=== PATIENT | male | born 2000 | race Caucasian/White ===

== ENCOUNTER 2020-05-03 19:41 | Emergency (ER) | payer OTHER, SELFPAY ==
[2020-05-03 19:58] VITALS: BP 151/72; PULSE 77; RESP 14; TEMP 36.8; O2SAT 100; BMI 23.2
--- NOTE | 2020-05-03 20:19 | ED_ITS ---
HPI - Extremity Problem General: Chief complaint: Extremity Injury, Upper Stated complaint: finger swollen and throbing pain Time Seen by Provider: 05/03/20 19:56 Source: patient Mode of arrival: ambulatory Limitations: no limitations History of Present Illness: HPI Narrative: Patient is a 20-year-old male who presents to ED today with a complaint of pain to his right middle finger. Patient states he smashed the finger approximately 2 to 3 days ago. He states he woke up this morning with pain about the tip of the finger. He states no lacerations, abrasions, breaks in the skin were ever sustained. Tetanus is up-to-date. He states the finger is swollen. MD Complaint: extremity pain and extremity swelling Onset (ago): day(s) Pain Consistency: constant Location: right and upper extremity Radiation: none Relieving factors: nothing Exacerbating factors: nothing Associated symptoms: Reports no associated symptoms Review of Systems Musc: Reports: extremity pain (R middle finger) and extremity swelling (R middle finger) Neuro: Denies: numbness in extremities or sensory changes Physical Exam Const: COMMON NORMALS: no acute distress, average body habitus, patient oriented x3, no limitations, healthy appearing, alert and well nourished Extremity: GENERAL: Yes normal exam except as noted OTHER: pt has mild swelling throughout R middle finger; there is no redness/warmth to entire digit or over a joint; no tenderness of flexion or extension tendons; full ROM; he has mild redness and all of tenderness is located to ulnar aspect of R middle nail consistent with a paronychia Neuro: COMMON NORMALS: patient oriented x3, moves all extremities, no focal motor deficits and no sensory deficits noted SENSORIUM/ORIENTATION: Yes alert Course Vital Signs: Vital signs: Vital Signs Temperature 98.3 F 05/03/20 19:58 Pulse Rate 77 05/03/20 19:58 Respiratory Rate 14 05/03/20 19:58 Blood Pressure 151/72 05/03/20 19:58 Pulse Oximetry 100 05/03/20 19:58 MDM - Extremity (Nontraumatic) MDM Narrative: Medical decision making narrative: clinically pt has a paronychia; he has some mild swelling to the digit that I think is probably from him smashing it the other day; he has no deep space finger infection or tenosynovitis; will place on abx and have him do warm water soaks; return to ED precautions given Discharge Plan Discharge Patient Disposition: Home Clinical Impression: Acute paronychia of finger of right hand Condition: Stable Prescriptions: New Bactrim DS 800-160 mg tablet 1 tab PO BID 7 Days Qty: 14 RF: 0 Discharge Orders: Discharge Order (Routine); Ordered 05/03/20 Ordered By: Mar Medellin Patient Instructions: Paronychia (ED) Activity Restrictions/Additional Instructions: As discussed please do warm soapy water soaks for 20 minutes 3-4 times daily. Y ou may follow-up with primary care in 3 to 5 days if symptoms are worsening. Coding Level of Care Code ED Product Safety Administrator for Amber Fwd Exam Expanded Problem Focused
[2020-05-03 21:13] VITALS: BP 118/70; PULSE 78; RESP 18; O2SAT 99
== END 2020-05-03 21:20 | disposition home or self-care (01) ==
PROVIDERS: Emergency Provider Physician Assistant
DX: L03.011 Cellulitis of right finger (principal)
CPT/HCPCS: 12345; 99281

== ENCOUNTER → 2020-05-27 15:46 | Outpatient (BNVA) | payer OTHER, SELFPAY | PROVIDERS: Visit Provider Nurse Practitioner Family | DX: Z11.59 Encounter for screening for other viral diseases (principal); Z20.828 Contact with and (suspected) exposure to other viral communicable diseases; J06.9 Acute upper respiratory infection, unspecified | CPT/HCPCS: 87635 ==

== ENCOUNTER 2025-02-14 19:39 | Emergency (ER) | payer MEDICAID, SELFPAY ==
[2025-02-14 19:54] VITALS: BP 164/105; PULSE 60; RESP 16; TEMP 36.6; O2SAT 100; BMI 33.6
[2025-02-14 21:14] VITALS: BP 166/107
--- NOTE | 2025-02-15 06:16 | ED_ITS ---
HPI - General Adult General: Chief complaint: General Medical Stated complaint: swollen knot on Left side neck into chin Time Seen by Provider: 02/14/25 20:39 History of Present Illness: Patient presents with swelling on one side of the neck, which has occurred once before on the same side. The swelling was previously larger, past the jawline, but has since decreased. Patient reports feeling hot but denies significant airway compromise, trouble swallowing, or breathing difficulties. There is a sensation of something pushing when swallowing. No cough or fever reported. The patient notes mild congestion but states this is not a new symptom. No history of terrible breath or food getting stuck during previous episodes. The episode may have been triggered while eating a [employer] special, but there is no clear evidence of a food allergy. The patient expresses concern about possible causes, including lymph node involvement or a structural abnormality such as a branchial cleft or diverticulum. Related Data Previous Rx's ?Medication ?Instructions ?Recorded ondansetron HCl 4 mg tablet 4 mg PO Q6H PRN nausea and 06/11/20 (Zofran) vomiting #20 tabs amoxicillin 875 mg-potassium 1 tab PO BID 10 days #20 tabs 06/24/20 clavulanate 125 mg tablet (Augmentin) Allergies Allergy/AdvReac Type Severity Reaction Status Date / Time azithromycin Allergy ALGY-Rash Verified 02/14/25 19:55 PFS ED PFSH: Family History Denies family history of Diabetes Clotting disorder Psychiatric illness Bleeding disorder Stroke Social History (Updated 07/30/20 @ 16:33 by Estuardo Tee LPN) Smoking and tobacco/nicotine status: current every day tobacco/nicotine user cigarettes Packs smoked per day: 1 Years cigarettes smoked: 4 Second hand smoke exposure: No Alcohol intake: never Substance/Drug Use: never Lives independently: Yes Household members: significant other Marital status: Single Current occupational status: employed Current occupation: [employer] Current gender identity: Male Physical Exam Const: COMMON NORMALS: no acute distress, patient oriented x3 and alert HENMT: COMMON NORMALS: normocephalic and atraumatic HEAD & SCALP: normocephalic and atraumatic Eye: COMMON NORMALS: Equal, round and reactive pupils present, EOMs intact bilaterally and no scleral icterus PUPIL: Yes Equal, round and reactive pu pils present Neck/C-Spine: OTHER: Mild pain with palpation of the left parotid gland just below the mandible angle. There is very mild swelling when compared with the contralateral side. No obvious lymphadenopathy or other abnormality. Resp: COMMON NORMALS: normal respiratory effort and No retractions Cardio: COMMON NORMALS: regular rate, regular rhythm and No murmurs present (Cardio) RATE: regular rate RHYTHM: regular rhythm GI: COMMON NORMALS: Normal to inspection, nondistended, normoactive bowel sounds present, Soft to palpation and non-tender PALPATION: Yes Soft to palpation Neuro: COMMON NORMALS: patient oriented x3 SENSORIUM/ORIENTATION: Yes alert Skin: COMMON NORMALS: no rashes or lesions noted GENERAL SKIN EXAM: no rashes or lesions noted Course Vital Signs: Vital signs: Vital Signs Temperature 97.8 F 02/14/25 19:54 Pulse Rate 60 02/14/25 19:54 Respiratory Rate 16 02/14/25 19:54 Blood Pressure 166/107 02/14/25 21:14 Pulse Oximetry 100 02/14/25 19:54 Oxygen Delivery Me thod Room Air 02/14/25 19:54 MDM - General Adult Medical Decision Making Patient is a generally well-appearing 24-year-old male seen for left anterior neck swelling and pain. He thinks this is a lymph node but I am uncertain whether that is the case. He has only very mild pain and very mild swelling at the time of my exam though he states it was worse earlier. Differential includes but is not limited to parotid gland dysfunction, lymph node, Zenker diverticulum, branchial cleft cyst. He was offered CT scan of the neck to further evaluate but he graciously declines and will follow-up with primary care knowing that he is always welcome back in the emergency department if symptoms get worse before outpatient follow-up. No radiology studies performed this visit Discharge Plan Discharge Patient Disposition: Home Clinical Impression: Localized swelling, mass and lump, neck Condition: Stable Prescriptions: No Action amoxicillin-pot clavulanate [Augmentin] 875-125 mg tablet 1 tab PO BID 10 Days Qty: 20 0RF ondansetron HCl [Zofran] 4 mg tablet 4 mg PO Q6H PRN (Reason: nausea and vomiting) Qty: 20 0RF Discharge Orders: Discharge ED (Routine); Ordered 02/14/25 Ordered By: Juan F Lindquist Discharge Diet: Advance as tolerated Discharge Activity: Increase activity as tolerated Patient Instructions: Patient Portal & Sam Instructions Activity Restrictions/Additional Instructions: as we discussed, without a CT scan it is hard to be 100% certain of the etiology of the swelling and pain in the left side of your neck. You may have a branchial cleft cyst or may be just the lymph node is swollen. Either way, it seems to be getting better at this time. If symptoms get worse or if you have a fever or redness or vomiting or trouble swallowing or breathing please return to the emergency department to consider scanning the neck. Print Language: Citizen Of [place] Coding Level of Care Code ED Sales Host for Amber Altman
== END 2025-02-14 21:35 | disposition home or self-care (01) ==
PROVIDERS: Emergency Provider Student in an Organized Health Care Education/Training Program
DX: R22.1 Localized swelling, mass and lump, neck (principal)
CPT/HCPCS: 99281

== ENCOUNTER 2025-02-15 11:46 | Emergency (ER) | payer MEDICAID, SELFPAY ==
[2025-02-15 11:55] VITALS: BP 175/84; PULSE 71; RESP 16; TEMP 36.6; O2SAT 100; BMI 39.1
[2025-02-15 12:30] VITALS: BP 144/77; PULSE 71; RESP 16; O2SAT 98
--- NOTE | 2025-02-15 12:40 | CTR_ITS ---
PROCEDURE INFORMATION: Exam: CT Neck With Contrast Exam date and time: 02/15/2025 1:05 PM Age: 24 years old Clinical indication: Mass, lump, or swelling in neck; Left; Additional info: Left submandibular/upper neck mass-changes with eating TECHNIQUE: Imaging protocol: Computed tomography of the neck with contrast. Radiation optimization: All CT scans at this facility use at least one of these dose optimization techniques: automated exposure control; mA and/or kV adjustment per patient size (includes targeted exams where dose is matched to clinical indication); or iterative reconstruction. Contrast material: OMNIPAQUE 350; Contrast volume: 100 ml; Contrast route: INTRAVENOUS (IV); COMPARISON: No relevant prior studies available. RADIATION DOSE METRICS: Total DLP (mGy-cm): 342.85 FINDINGS: Paranasal sinuses: There is diffuse nodular soft tissue density opacification of bilateral frontal, ethmoidal and maxillary sinuses. Sphenoid air cells are partially clear but have multiple small polyps. No air-fluid levels in the sinuses. Nasal cavity: Nodularity is noted in the nasal cavity. There is less involvement of the inferior turbinates. Salivary glands: The left submandibular gland is larger than the right and heterogeneous in density with mild induration of the adjacent overlying subcutaneous fat compatible with probable mild inflammation/infection. Bilateral parotid glands and right submandibular gland are unremarkable. No salivary gland calculus. Pharynx: Unremarkable. No significant tonsillar enlargement. Larynx: Unremarkable. Epiglottis is normal. Thyroid: Normal. No enlarged or calcified nodules. Trachea: Visualized trachea is unremarkable. Lungs: Unremarkable as visualized. Lymph nodes: Multiple subcentimeter lymph nodes are noted in the left upper neck and submandibular region. Bones/joints: There is bony remodeling of the sinonasal bones with thickening of the ethmoidal pino, decreased bony mineralization and truncation of the middle turbinates. Soft tissues: See Salivary glands finding. Other findings: No fluid collection or abscess. CT/CT neck w con* [id number] IMPRESSION: 1. Left submandibular gland sialadenitis. No abscess or calculus. 2. 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
--- NOTE | 2025-02-15 12:42 | W.ED.GENADLT ---
HPI - General Adult General: Chief complaint: General Medical Stated complaint: Swollen lympnodes Time Seen by Provider: 02/15/25 12:06 Source: patient Mode of arrival: ambulatory Limitations: no limitations History of Present Illness: This patient comes to our emergency department because of concerns about what he thinks is a lymph node in his left side of his neck just below his left jawline. He states he noted some months ago he states that it he initially noted when he was eating it seemed to be sore and uncomfortable with swallowing. He states it seemed to resolve but over the past few weeks has been more frequently coming and going as he describes it when he eats. It does not seem to bother him when he drinks liquids but when he eats solid foods. He denies having this symptom prior to last few months. He states he has not been recently ill with cough congestion runny nose ear pain etc. He states he has not had any tooth pain. States he is otherwise in good health takes no daily medications. He does not regurgitate food or have bad breath etc. He does not use chewing tobacco but does vape. Associated symptoms: Deny headache(s), nausea, rash or vomiting Related Data Home Medications ?Medication ?Instructions ?Recorded ?Confirmed ashotiliodha root extract 300 mg 300 mg PO DAILY 02/15/25 02/15/25 tablet loratadine-pseudoephedrine ER 10 1 tab PO DAILY 02/15/25 02/15/25 mg-240 mg tablet,extended [id number] (Claritin-D 24 Hour) multivit,Ca,min-iron 8 mg-folic 1 tab PO DAILY 02/15/25 02/15/25 acid 200 mcg-lycopene 600 mcg tablet (Centrum Men) Previous Rx's ?Medication ?Instructions ?Recorded cephalexin 500 mg capsule 500 mg PO TID 7 days #21 caps 02/15/25 Allergies Allergy/AdvReac Type Severity Reaction Status Date / Time azithromycin Allergy ALGY-Rash Verified 02/14/25 19:55 Review of Systems Const: Denies: fever(s) or chills ENMT: Reports: odynophagia; Denies: mouth pain, swelling of lips/tongue, ear or mastoid pain, nasal discharge or nasal congestion Resp: Denies: productive cough or non-productive cough GI: Denies: abdominal pain, nausea or vomiting Musc: Denies: back pain, extremity pain or extremity swelling Skin/Breast: Denies: rash Neuro: Denies: headache(s), numbness in extremities or weakness in extremities PFSH ED PFSH: Family History Denies family history of Diabetes Clotting disorder Psychiatric illness Bleeding disorder Stroke Social History Smoking and tobacco/nicotine status: current every day tobacco/nicotine user cigarettes Packs smoked per day: 1 Years cigarettes smoked: 4 Second hand smoke exposure: No Alcohol intake: never Substance/Drug Use: never Lives independently: Yes Household members: significant other Marital status: Single Current occupational status: employed Current occupation: [employer] Current gender identity: Male Physical Exam Narrative: EXAM NARRATIVE: Appears to be well-developed in no acute distress. Makes good eye contact. Const: COMMON NORMALS: no acute distress and patient oriented x3 GENERAL APPEARANCE: cooperative and comfortable NUTRITIONAL APPEARANCE: overweight HENMT: COMMON NORMALS: normocephalic, EAC's normal, TM's normal bilaterally, Normal nasal mucous membranes and turbinates present, moist oral mucous membranes, oropharynx normal and dentition normal HEAD & SCALP: normocephalic FACE & SINUS: face symmetric NOSE: Normal nasal mucous membranes and turbinates present EXTERNAL AUDITORY CANAL: EAC's normal TYMPANIC MEMBRANE: TM's normal bilaterally MOUTH: tongue normal OTHER: Essentially his oropharynx is entirely normal. He has a mobile tongue without any subungual masses. The dentition is in good repair without any obvious caries or missing teeth. There is no obvious intraoral masses etc. Uvula is midline. Eye: COMMON NORMALS: Equal, round and reactive pupils present and conjunctivae normal CONJUNCTIVA: Yes conjunctivae normal PUPIL: Yes Equal, round and reactive pupils present Neck/C-Spine: COMMON NORMALS: full ROM, supple, Thyroid normal and No carotid bruits THYROID: Thyroid normal OTHER: The area of concern is inferior to the mandible on the left and in the area at the juncture of the platysma and his anterior neck. When he rotates his head extremely to the right there is a perhaps a 1-1/2 sonometer palpable mass which is tender to palpation. There is no erythema of the overlying skin draining sinus etc. Chest: COMMONS NORMALS: normal inspection of the chest Resp: COMMON NORMALS: normal respiratory effort, No use of accessory muscles and clear to auscultation bilaterally AUSCULTATION: clear to auscultation bilaterally Cardio: COMMON NORMALS: regular rate, regular rhythm and No murmurs present (Cardio) RATE: regular rate RHYTHM: regular rhythm GI: COMMON NORMALS: Normal to inspection, nondistended, normoactive bowel sounds present Back/Pelvis: COMMON NORMALS: thoracic and lumbar spine normal to inspection Extremity: COMMON NORMALS: normal to inspection and full ROM Neuro: COMMON NORMALS: patient oriented x3, moves all extremities and no focal motor deficits CRANIAL NERVES: Yes CN normal except as noted Psych: COMMON NORMALS: mental status grossly normal Skin: COMMON NORMALS: no rashes or lesions noted and turgor normal GENERAL SKIN EXAM: no rashes or lesions noted and turgor normal Course Reevaluation(s): Reevaluation #1: Discussed clinical findings with patient and mother who is now present. Also discussed treatment recommendations and expected course. Time: 14:47 Vital Signs: Vital signs: Vital Signs Temperature 97.8 F 02/15/25 11:55 Pulse Rate 71 02/15/25 12:30 Respiratory Rate 16 02/15/25 12:30 Blood Pressure 160/88 02/15/25 14:40 Pulse Oximetry 96 02/15/25 14:40 Oxygen Delivery Me thod Room Air 02/15/25 11:55 [facility] - General Adult Medical Decision Making This patient came to our emergency department as noted in the history of present illness. His symptoms been intermittent and off and on over several weeks seem to have worsened over the past 2 to 3 weeks. No associated symptoms of fever chills etc. No known exposure to infectious disease. No prior issues of neck masses that might have been congenital in nature. Clinical exam revealed some tenderness on the left submandibular region with head turned to the right. No other abnormalities noted. No intraoral masses or suggestion of peritonsillar abscess, subungual mass Ludewig's angina etc. Imaging was obtained to further delineate the potential etiology. CT of the soft tissue neck noted changes consistent with submandibular sialoadenitis. No evidence of abscess or other concerning findings and he is clinically stable without evidence of fever perturbation in his vital signs or other signs would suggest a more aggressive infection etc. at this time. He will be treated with oral antistaphylococcal antibiotics for the next 7 days and also sialagogues such as a hard candy was suggested. He also will be referred to ENT for a follow-up evaluation for this condition as well as his chronic nasal polyps which are quite large. Return precautions were discussed with both he and his mother who was present. Lab Data Radiology Impressions Neck CT 02/15/25 12:40 IMPRESSION: 1. Left submandibular gland sialadenitis. No abscess or calculus. 2. 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 All radiology interpretation(s) finalized by discharge Discharge Plan Discharge Patient Disposition: Home Clinical Impression: Sialoadenitis of submandibular gland Condition: Stable Prescriptions: New cephalexin 500 mg capsule 500 mg PO TID 7 Days Qty: 21 0RF No Action Claritin-D 24 Hour 10-240 mg Tablet Extended Release 24 Hr 1 tab PO DAILY Centrum Men 8 mg iron- 200 mcg-600 mcg Tablet 1 tab PO DAILY ashwagandha root extract 300 mg Tablet 300 mg PO DAILY Discharge Orders: Discharge ED (Routine); Ordered 02/15/25 Ordered By: Holger Whitney Discharge Diet: Advance as tolerated and As Directed Discharge Activity: Increase activity as tolerated Patient Instructions: Sialoadenitis (ED), Opioid Safety, Pain Management, Patient Portal & Sam Instructions Activity Restrictions/Additional Instructions: As we discussed you have an inflammation of your salivary gland and your left side of your jaw. We are prescribing antibiotics as this is helpful in the treatment of this condition. We also recommend sucking on hard candy several times daily to help stimulate the gland to empty. We will place a consultation for the ear nose and throat doctor to see you in approximately 7 to 10 days to reevaluate you. If it anytime you are pain increases, swelling increases, you develop fever or other concerning symptoms return to this or the nearest emergency department. Print Language: French Coding Level of Care Code ED Timber Supervisor for Amber Altman
[2025-02-15] MEDS: iohexol 350 mg/mL 500 mL Btl (per mL) IV (13:07)
[2025-02-15 14:40] VITALS: BP 160/88; O2SAT 96
[2025-02-15 15:00] VITALS: BP 160/88; PULSE 76; RESP 16; O2SAT 98
--- NOTE | 2025-02-17 07:20 | DCPLANNER ---
faxed ent referral packet to dr. saab office
== END 2025-02-15 15:00 | disposition home or self-care (01) ==
PROVIDERS: Emergency Provider Emergency Medicine
DX: K11.20 Sialoadenitis, unspecified (principal); F17.210 Nicotine dependence, cigarettes, uncomplicated
CPT/HCPCS: 70491; 99285